=== PATIENT | male | born 2005 | race Caucasian/White ===

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

== ENCOUNTER → 2023-02-21 | Outpatient (REF) | payer OTHER ==
[~2023-02-21] MED LIST: AMOX875T PO; ARNU1INH3 INH; CHILCHW10 PO; HYDR-3715 PO; LORA-243 PO; SING5CHW23 PO
[2023-02-21 13:32] LABS: BASO # 0.1 10^3/uL (0.0-0.2); BASO % 0.7 % (0.0-1.0); HEMATOCRIT 48.2 % (42.0-52.0); HEMOGLOBIN 16.3 g/dl (13.5-17.5); LYMPH # 2.4 10^3/uL (1.5-5.0); LYMPH % 33.9 % (24.0-44.0); MEAN CORPUSCULAR HEMOGLOBIN 29.9 pg (27.0-33.0); MEAN CORPUSCULAR HGB CONC 33.8 g/dl (32.0-36.5); MEAN CORPUSCULAR VOLUME 88.4 fl (80.0-96.0); MONO # 0.6 10^3/uL (0.0-0.8); MONO % 8.4 % (2.0-8.0); NEUTROPHILS % 56.7 % (36.0-66.0); PLATELET COUNT, AUTOMATED 300 10^3/uL (150-450); RED BLOOD COUNT 5.45 10^6/uL (4.30-6.10)
[2023-02-21 13:58] LABS: HEMOGLOBIN A1c 4.8 % (4.0-6.0)
[2023-02-21 14:00] LABS: ALBUMIN 4.2 G/DL (3.2-5.2); ALKALINE PHOSPHATASE 95 U/L (46-116); ALT/SGPT 32 U/L (7.0-40); AST/SGOT 16 U/L (<34); BILIRUBIN,TOTAL 0.8 MG/DL (0.3-1.2); BLOOD UREA NITROGEN 11 MG/DL (9-23); CALCIUM LEVEL 9.2 MG/DL (8.5-10.1); CARBON DIOXIDE LEVEL 27 MMOL/L (20-31); CHLORIDE LEVEL 101 MMOL/L (98-107); CHOLESTEROL LEVEL 152 MG/DL (<200); CHOLESTEROL RISK RATIO 3.82 (<5); GLUCOSE, FASTING 79 MG/DL (60-100); HDL CHOLESTEROL 39.7 MG/DL (>40); LDL CHOLESTEROL 86.3 MG/DL (<100); NON-HDL-C 112.3 MG/DL; POTASSIUM SERUM 4.1 MMOL/L (3.5-5.1); SODIUM LEVEL 137 MMOL/L (136-145); THYROID STIMULATING HORMONE 1.381 uIU/ML (0.48-4.17); TOTAL PROTEIN 7.5 G/DL (5.7-8.2); TRIGLYCERIDES LEVEL 130 MG/DL (<150)
== END ==
LOC: M LAB REF 12:45
PROVIDERS: ATTEND Pediatrics
DX: E66.9 Obesity, unspecified (principal)

== ENCOUNTER → 2024-03-18 | Outpatient (REF) | payer OTHER ==
[~2024-03-18] MED LIST changes: +MONT5TAB7 PO; -SING5CHW23 PO
[2024-03-18 14:06] LABS: HEMOGLOBIN A1c 4.9 % (4.0-6.0)
[2024-03-18 14:22] LABS: THYROID STIMULATING HORMONE 0.868 uIU/ML (0.48-4.17)
[2024-03-18 14:23] LABS: TOTAL 25(OH) VITAMIN D 7.3 NG/ML (20.0-100.0)
== END ==
LOC: M LAB REF 13:14
PROVIDERS: ATTEND Pediatrics
DX: E66.9 Obesity, unspecified (principal); E55.9 Vitamin D deficiency, unspecified; Z68.37 Body mass index [BMI] 37.0-37.9, adult